=== PATIENT | male | born 1940 | race Caucasian/White ===

== ENCOUNTER 2016-07-27 12:58 | Emergency (ER) | payer MEDICARE, OTHER ==
[~2016-07-27] VITALS: Ht 177.8 cm; Wt 90.0 kg
[~2016-07-27 12:58] MED LIST: ASPI81 PO; FOLI20CA PO; GLUCTAB OR; GLYB1TAB51 PO; ISOS30TA3 PO; LIPI40TA PO; LISI-357 PO; METF-324 PO; METO50CR OR; PIOG45 PO; TAB-TAB PO; VITA50LO PO
[2016-07-27 12:59] VITALS: BP 175/79; PULSE 97; RESP 20; TEMP 97.7; O2SAT 96
--- NOTE | 2016-07-27 14:41 | PD ---
HPI Chief Complaint: Cold / Flu Symptoms Time Seen by Provider: 14:37 Travel History International Travel<30 days: No Contact w/Intl Traveler<30days: No Traveled to known affect area: No History of Present Illness HPI Patient is a 75-year-old male presenting to emergency for evaluation of cough, chest congestion, nasal congestion. Patient states his symptoms have been ongoing for 1 week, he is coughing up clear to yellow sputum. His states that he was running a fever a few days ago. He denies any chest pain, shortness of breath, nausea, vomiting, abdominal pain, back pain. He denies any tobacco use. Patient has a history of hypertension and hyperlipidemia. 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 Reported Vitamin B-12 (Cyanocobalamin) 50 Mcg Tab 500 Mcg PO DAILY Multivitamin (Multivitamins) 1 Tab Tab 1 Tab PO DAILY Aspirin 81 Mg Tab 81 Mg PO DAILY Actos 45 mg (Pioglitazone HCl) 45 Mg Tab 45 Mg PO DAILY Metoprolol Succinate ER 50 mg (Metoprolol Succinate) 50 Mg Tab 50 Mg OR DAILY Lisinopril 5 mg (Lisinopril) 5 Mg Tab 5 Mg PO DAILY Folic Acid 20 Mg Cap 1 Mg PO DAILY Isosorbide Mononitrate Er (Isosorbide Mononitrate) 30 Mg Tab 30 Mg PO DAILY Lipitor (Atorvastatin Calcium) 40 Mg Tab 40 Mg PO DAILY Glyburide 5 Mg Tab 10 Mg PO BID Metformin ER 24 HR (Metformin HCl) 1,000 Mg Tab 1,000 Mg PO BID Glucophage XR 24 HR (Metformin HCl) 500 Mg Tab 1,000 Mg OR Review of Systems Except as stated in HPI: all other systems reviewed are Neg General / Constitutional: Positive: Fever HENT: Positive: Rhinitis, Congestion Cardiovascular: No: Chest Pain or Discomfort, Tachycardia Respiratory: Positive: Cough, Wheezing, Pleuritic Pain, No: Shortness of Breath Gastrointestinal: No: Nausea, Abdominal Pain Musculoskeletal: No: Myalgias Physical Exam Narrative GENERAL: Well-developed, well-nourished, alert elderly gentleman. Resting comfortably in no acute distress. SKIN: Warm and dry. HEAD: Atraumatic. Normocephalic. EYES: Pupils equal and round. No scleral icterus. No injection or drainage. ENT: No nasal bleeding or discharge. Mucous membranes pink and moist. NECK: Trachea midline. No JVD. CARDIOVASCULAR: Regular rate and rhythm. No murmur appreciated. RESPIRATORY: No accessory muscle use. Coarse breath sounds in bilateral bases, scattered expiratory wheezing throughout. GASTROINTESTINAL: Abdomen soft, non-tender, nondistended. Hepatic and splenic margins not palpable. MUSCULOSKELETAL: No obvious deformities. No clubbing. No cyanosis. No edema. NEUROLOGICAL: Awake and alert. No obvious cranial nerve deficits. Motor grossly within normal limits. Normal speech. PSYCHIATRIC: Appropriate mood and affect; insight and judgment normal. Data Data Last Documented VS Vital Signs Date Time Temp Pulse Resp B/P Pulse Ox O2 Delivery O2 Flow Rate FiO2 07/27/16 16:35 85 20 132/82 97 Room Air 07/27/16 12:59 97.7 Orders Complete Blood Count With Diff (07/27/16 14:34) Comprehensive Metabolic Panel (07/27/16 14:34) Chest, Pa & Lat (07/27/16 14:34) Methylprednisolone So Succ Inj (Solumedr (07/27/16 14:45) Albuterol-Ipratropium Neb (Duoneb Neb) (07/27/16 14:45) Influenzae A/B Antigen (07/27/16 14:36) Sputum Culture And Gram Stain (07/27/16 14:36) Electrocardiogram (07/27/16 ) Labs Laboratory Tests Test 07/27/16 15:10 White Blood Count 9.7 TH/MM3 Red Blood Count 4.36 MIL/MM3 Hemoglobin 14.1 GM/DL Hematocrit 41.0 % Mean Corpuscular Volume 94.1 FL Mean Corpuscular Hemoglobin 32.4 PG Mean Corpuscular Hemoglobin 34.4 % Concent Red Cell Distribution Width 12.7 % Platelet Count 266 TH/MM3 Mean Platelet Volume 7.2 FL Neutrophils (%) (Auto) 78.7 % Lymphocytes (%) (Auto) 12.1 % Monocytes (%) (Auto) 8.0 % Eosinophils (%) (Auto) 0.7 % Basophils (%) (Auto) 0.5 % Neutrophils # (Auto) 7.7 TH/MM3 Lymphocytes # (Auto) 1.2 TH/MM3 Monocytes # (Auto) 0.8 TH/MM3 Eosinophils # (Auto) 0.1 TH/MM3 Basophils # (Auto) 0.0 TH/MM3 CBC Comment DIFF FINAL Differential Comment Sodium Level 135 MEQ/L Potassium Level 4.5 MEQ/L Chloride Level 102 MEQ/L Carbon Dioxide Level 23.2 MEQ/L Anion Gap 10 MEQ/L Blood Urea Nitrogen 23 MG/DL Creatinine 1.46 MG/DL Estimat Glomerular Filtration 47 ML/MIN Rate Random Glucose 224 MG/DL Calcium Level 8.9 MG/DL Total Bilirubin 0.5 MG/DL Aspartate Amino Transf 16 U/L (AST/SGOT) Alanine Aminotransferase 21 U/L (ALT/SGPT) Alkaline Phosphatase 65 U/L Total Protein 7.9 GM/DL Albumin 3.4 GM/DL MDM Medical Decision Making Medical Screen Exam Complete: Yes Emergency Medical Condition: Yes Interpretation(s) Vital Signs Date Time Temp Pulse Resp B/P Pulse Ox O2 Delivery O2 Flow Rate FiO2 07/27/16 12:59 97.7 97 20 175/79 96 Room Air Differential Diagnosis Acute bronchitis versus pneumonia versus viral URI versus other Narrative Course Patient is a 75-year-old well-appearing gentleman presenting to the emergency department for evaluation of cough and chest congestion. Symptoms have been ongoing for 1 week. Labs, imaging ordered and pending. Patient is resting comfortably, vital signs are stable, at bedside. CBC is unremarkable, chemistry with slightly elevated BUN and creatinine, prior was in 2013. Chest x-ray is unremarkable. Influenza was negative. Sputum culture is ordered and pending. Discussed with my attending physician Dr. Natarajan who recommended performing an EKG due to patient's history of diabetes. Patient will be discharged home with azithromycin. He is encouraged to return to emergency department for any new or worsening symptoms. Patient's vital signs are reassessed prior to discharge, he is well oxygenated on room air, and vital signs are otherwise stable. Patient verbalized understanding of these instructions. Patient stable for discharge. EKG read atrial fibrillation however when EKG was assessed there are P waves for every QRS complex, patient is a normal sinus rhythm. EKG was also evaluated by my attending physician Dr. Villalobos. Diagnosis Primary Impression: Upper respiratory tract infection Qualified Code: J06.9 - Viral upper respiratory tract infection Referrals: Primary Care Physician Patient Instructions: General Instructions, Upper Respiratory Infection (ED) Additional Instructions: Take medications as directed Follow-up with your primary doctor Return to emergency department for any new or worsening symptoms Increased oral fluid intake Med/Other Pt SpecificInfo: Prescription(s) given Scripts Azithromycin 250 Mg Uwh158 Mg PO DIRECTED #6 TAB Ref 0 Take 2 tabs (500 mg) on day 1 then 1 tab daily x 4 days. Prov:Farida Zaragoza 07/27/16 Disposition: 01 DISCHARGE HOME Condition: Stable Farida Zaragoza Jul 27, 2016 14:41
[2016-07-27] MEDS ORDERED: methylPREDNISolone SOD SUCC 125 MG/2 ML VIAL IM ONE (14:45)
[2016-07-27] MEDS: RESP: ALBUTEROL 2.5 MG/IPRATROPIUM 0.5 MG NEB (SCH) INH (15:14)
[2016-07-27 15:29] LABS: AUTOMATED NEUTROPHIL # 7.7 TH/MM3 (1.8-7.7); BASOPHIL % 0.5 % (0.0-2.0); EOSINOPHIL # 0.1 TH/MM3 (0-0.4); EOSINOPHIL % 0.7 % (0.0-4.0); HEMO FLAGS DIFF FINAL; LYMPH % 12.1 % (9.0-44.0); LYMPHOCYTE # 1.2 TH/MM3 (1.0-4.8); MEAN CELL VOLUME 94.1 FL (80.0-100.0); MEAN CORPUSCULAR HEMOGLOBIN 32.4 PG (27.0-34.0); MEAN CORPUSCULAR HGB CONC 34.4 % (32.0-36.0); NEUT % 78.7 % (16.0-70.0); PLATELET COUNT 266 TH/MM3 (150-450); RED BLOOD COUNT 4.36 MIL/MM3 (4.50-5.90); RED CELL DISTRIBUTION WIDTH 12.7 % (11.6-17.2); WHITE BLOOD COUNT 9.7 TH/MM3 (4.0-11.0)
--- NOTE | 2016-07-27 15:44 | RADRPT ---
EXAM DATE/TIME: 07/27/2016 14:53 [facility] COMPARISON: No previous studies available for comparison. INDICATIONS : Short of breath. Cough. MEDICAL HISTORY : Cardiovascular disease. SURGICAL HISTORY : CABG. ENCOUNTER: Initial ACUITY: 1 week PAIN SCORE: 0/10 LOCATION: Bilateral chest FINDINGS: Median sternotomy wires are noted status post cardiac surgery. The heart is normal. The pulmonary v ascular pattern is normal. The lungs are clear. CONCLUSION: No acute cardiopulmonary disease. Fran Christina MD on July 27, 2016 at 15:40 Board Certified Radiologist. This report was verified electronically.
[2016-07-27 15:50] LABS: ALT (GPT) 21 U/L (12-78); ANION GAP 10 MEQ/L (5-15); AST (GOT) 16 U/L (15-37); BICARBONATE 23.2 MEQ/L (21.0-32.0); BLOOD UREA NITROGEN 23 MG/DL (7-18); CHLORIDE 102 MEQ/L (98-107); GLOMERULAR FILTRATION RATE 47 ML/MIN (>89); POTASSIUM 4.5 MEQ/L (3.5-5.1); SODIUM (NA) 135 MEQ/L (136-145)
[2016-07-27 15:52] LABS: ALKALINE PHOSPHATASE 65 U/L (45-117); TOTAL BILIRUBIN ADULT 0.5 MG/DL (0.2-1.0)
[2016-07-27 16:35] VITALS: BP 132/82; PULSE 85; RESP 20; O2SAT 97
[2016-07-27] MEDS ORDERED: AZIT250T3 PO (17:11)
--- NOTE | 2016-07-28 10:18 | EKG ---
Date Performed: 07/27/2016 Time Performed: 17:18:38 PTAGE: 75 years EKG: ATRIAL FIBRILLATION BORDERLINE LEFT AXIS DEVIATION ABNORMAL RHYTHM ECG NO PREVIOUS TRACING DOCTOR: Alli Garg Interpretating Date/Time 07/28/2016 10:15:28
== END 2016-07-27 17:58 | disposition home or self-care (01) ==
LOC: NEPB 12:58
DX: J06.9 Acute upper respiratory infection, unspecified (principal); R06.02 Shortness of breath; E78.00 Pure hypercholesterolemia, unspecified; E11.9 Type 2 diabetes mellitus without complications; I10 Essential (primary) hypertension; Z95.1 Presence of aortocoronary bypass graft
CPT/HCPCS: 71020; 80053; 85025; 87070; 87205; 87804; 93005; 94664; 96372; 99283; J2930